=== PATIENT | female | born 1985 | race American Indian/Alaskan Native ===

== ENCOUNTER 2017-09-23 10:00 | Emergency (ER) | payer OTHER ==
[2017-09-23] MEDS ORDERED: Morphine 4 mg/ml ISec IVP STA (10:30)
[2017-09-23] MEDS ORDERED: Famotidine 20mg/50ml 20 MG/50 ML BAG IVPB STA (10:32)
--- NOTE | 2017-09-23 10:36 | ED PDOC ---
Arrival/HPI - General Chief Complaint: Abdominal Pain Time Seen by Provider: 09/23/17 10:24 Historian: Patient - History of Present Illness Narrative History of Present Illness (Text): 09/23/17 10:30 pt p/w + severe epigastric pain since this morning; pt had eaten a heavy meal last night with fried chicken and biscuits; pt states pain is middle of her upper abd, + deep breathing causes some pain; pt states at most pain is 6/10, non-radiating; pt states mild nausea, no appetite, no fever/chills/sweats, no cp /sob/palpitations, no rashes, no urinary/bowel changes, no gross bleeding; pt denied other complaints; pt is here for further eval. pt first presented to Dr Myles's office prior to ED arrival PCP: Dixie Myles pt gave ~ 3 months ago, had CTA chest/dopper performed at the time - no DVT/PE Time/Duration: Prior to Arrival Symptom Onset: Sudden Symptom Course: Unchanged Quality: Tightness, Cramping Severity Level: 7 Activities at Onset: Rest Context: Home Past Medical History - Provider Review Nursing Documentation Reviewed: Yes - Travel History Have you recently traveled outside [place] w/in the past 3 mons?: No - Past History Past History: No Previous - Infectious Disease Hx of Infectious Diseases: None - Reproductive Menopause: No Currently : No - Psychiatric Hx Psychophysiologic Disorder: No Hx Substance Use: No - Surgical History Hx Section: Yes (06/22) Other/Comment: L LEG R/T FX Family/Social History - Physician Review Nursing Documentation Reviewed: Yes Family/Social History: No Known Family HX Smoking Status: Never Smoked Hx Alcohol Use: Yes Frequency of alcohol use: Socially Hx Substance Use: No Hx Substance Use Treatment: No Allergies/Home Meds Allergies/Adverse Reactions: Allergies No Known Allergies Allergy (Verified 09/23/17 10:06) Review of Systems - Review of Systems Constitutional: Normal Eyes: Normal ENT: Normal Respiratory: Normal. absent: SOB Cardiovascular: Normal. absent: Chest Pain Gastrointestinal: Abdominal Pain, Nausea. absent: Vomiting Genitourinary Female: Normal Musculoskeletal: Normal. absent: Back Pain Skin: Normal Neurological: Normal Endocrine: Normal Hemo/Lymphatic: Normal Psychiatric: Normal Physical Exam Vital Signs Reviewed: Yes Vital Signs Temp Pulse Resp BP Pulse Ox 09/23/17 13:38 98.0 F 81 19 130/80 98 09/23/17 10:06 99.1 F 88 17 145/84 98 Temperature: Afebrile Blood Pressure: Normal Pulse: Regular Respiratory Rate: Normal Appearance: Positive for: Well-Appearing, Non-Toxic, Uncomfortable, Other (alert /awake, GCS = 15, oriented x 3, cooperative, NAD, uncomfortable) Pain Distress: None Mental Status: Positive for: Alert and Oriented X 3 - Systems Exam Head: Present: Atraumatic, Normocephalic Pupils: Present: PERRL, Other (visual field intact b/l, no nystagmus, no photophobia, sclera anicteric) Extroacular Muscles: Present: EOMI Conjunctiva: Present: Normal Ears: Present: Normal Mouth: Present: Moist Mucous Membranes, Normal Teeth Pharnyx: Present: Normal Nose (External): Present: Atraumatic Nose (Internal): Present: Normal Inspection Neck: Present: Normal Range of Motion, Trachea Midline, Other (no step off, no nuchal rigidity, no meningeal signs). No: MIDLINE TENDERNESS Respiratory/Chest: Present: Clear to Auscultation, Good Air Exchange, Other ( CTA b/l, no w/r/r) Cardiovascular: Present: Regular Rate and Rhythm, Normal S1, S2. No: Murmurs Abdomen: Present: Tenderness (+ mild prince's sign, + mild epigastric tenderness ), Normal Bowel Sounds, Other (well nourished/morbid obese female, no mcburney' s point tenderness, no masses/rebound/guarding/rigidity) Back: Present: Normal Inspection, Other (intact ROM, no midline tenderness, no step off). No: CVA Tenderness, Midline Tenderness Upper Extremity: Present: Normal Inspection, Normal ROM, NORMAL PULSES, Neurovascularly Intact, Capillary Refill < 2s Lower Extremity: Present: Normal Inspection, NORMAL PULSES, Normal ROM, Neurovascularly Intact, Capillary Refill < 2 s, Other (+ ambulatory, neurovasc intact b/l, strength 5/5 grossly intact in all limbs). No: Prudence's Sign Neurological: Present: GCS=15, CN II-XII Intact, Speech Normal Skin: Present: Warm, Normal Color, Other (cap refill < 1sec, no ulcerations, no petechiae, no rashes). No: Rashes Psychiatric: Present: Alert, Oriented x 3 Medical Decision Making ED Course and Treatment: 09/23/17 10:36 Impression: epigastric pain i have consider all the differential diagnosis regarding pt's chief medical complaints/clinical findings, including but are not limited to: epigastric pain A/P: epigastric pain - labs - iv - xray - us - ? acs - observe - supportive care 09/23/17 13:31 pt did not want morphine for pain control pt states epigastric pain ~ 5/[address] Dixie Myles, made aware of pt's medical presentation, if pt remains with persistent intractable pain, agrees with admission, otherwise pt can be discharged home with outpt f/u and tramadol for pain control pt denied nausea/vomiting pt is made aware of her medical results pt is encouraged bland diet pt is encouraged fluids pt will f/u as directed pt will be discharged home Re-evaluation Time: 13:15 Reassessment Condition: Unchanged - Lab Interpretations Lab Results: 09/23/17 10:55 09/23/17 10:55 Lab Results 09/23/17 11:15: Urine Color Light yellow, Urine Appearance Clear, Urine pH 6.5, Ur Specific [place] 1.010, Urine Protein Negative, Urine Glucose (UA) Negative, Urine Ketones Negative, Urine Blood Small H, Urine Nitrate Negative, Urine Bilirubin Negative, Urine Urobilinogen 0.2, Ur Leukocyte Esterase Negative, Urine RBC 10 - 15, Urine WBC 0 - 2, Ur Epithelial Cells 6 - 8, Amorphous Sediment Few, Urine Bacteria Many, Urine Other Uyeast 09/23/17 10:55: Sodium 140, Potassium 4.2, Chloride 105, Carbon Dioxide 26, Anion Gap 13, BUN 11, Creatinine 0.7, Est GFR ( Amer) > 60, Est GFR (Non- Af Amer) > 60, Random Glucose 99, Calcium 9.6, Magnesium 1.7, Total Bilirubin 0.3, AST 22, ALT 39, Alkaline Phosphatase 56, Lactate Dehydrogenase 498, Total Creatine Kinase 121, Troponin I < 0.01, Total Protein 7.9, Albumin 3.9, Globulin 4.0, Albumin/Globulin Ratio 1.0 L, Lipase 23 09/23/17 10:55: WBC 13.7 H, RBC 4.65, Hgb 13.1, Hct 38.6, MCV 83.0, MCH 28.2, MCHC 33.9, RDW 13.4, Plt Count 321, MPV 9.7, Gran % 78.9 H, Lymph % (Auto) 14.5 L, Haakon % (Auto) 5.8, Eos % (Auto) 0.7 L, Baso % (Auto) 0.1, Gran # 10.81 H, Lymph # (Auto) 2.0, Haakon # (Auto) 0.8 H, Eos # (Auto) 0.1, Baso # (Auto) 0.01 I have reviewed the lab results: Yes Interpretation: Abnormal lab values (slightly elevated WBCs) - RAD Interpretation Narrative RAD Interpretations (Text): 09/23/17 12:29 US abdomen- Creator : Ming Yusuf MD FINDINGS: LIVER: Measures 19.3 cm. Hepatopedal blood flow. Fatty infiltration manifest ultrasonographically as increased echogenicity of the liver parenchyma. No mass. No intrahepatic bile duct dilatation. GALLBLADDER: Cholelithiasis. Negative study for gallbladder wall thickening, pericholecystic fluid, sonographic Prince's sign. COMMON BILE DUCT: Measures 4.5 mm. No stones. No dilatation. PANCREAS: Unremarkable as visualized. No mass. No ductal dilatation. RIGHT KIDNEY: Measures 4.6 x 11.2cm. Normal echogenicity. No calculus, mass, or hydronephrosis. LEFT KIDNEY: Measures chest 0.2 x 11.6cm. Normal echogenicity. No calculus, mass , or hydronephrosis. SPLEEN: Normal in size and contour. No mass. AORTA: No aneurysmal dilatation. IVC: Unremarkable. IMPRESSION: Cholelithiasis. No sonographic evidence of acute cholecystitis. 09/23/17 12:33 Chest X-ray- Creator : Ming Yusuf MD IMPRESSION: No active disease. Radiology Orders: 09/23/17 10:30 CHEST TWO VIEWS (PA/LAT) [RAD] Stat 09/23/17 10:31 ABDOMEN COMPLETE [US] Stat Testing Shaking Shipping: ED Physician, Radiologist - EKG Interpretation EKG Interpretation (Text): 09/23/17 13:21 NSR at 85 bpm, normal axis, no ectopy, qs in leads III, F, no st-t changes, NORMAL EKG; NO old ekg to compare with Interpreted by ED Physician: Yes Type: 12 lead EKG Comparison: No previous EKG avail. - Medication Orders Current Medication Orders: Discontinued Medications Famotidine (Pepcid 20mg/50ml Premix) 20 mg in 50 mls @ 100 mls/hr IVPB STAT STA Stop: 09/23/17 11:01 Last Admin: 09/23/17 11:02 Dose: 100 mls/hr eMAR Start Stop Document 09/23/17 11:02 [email or web address] (Rec: 09/23/17 11:02 [id number]) Intravenous Solution Start Date 09/23/17 Start Time 11:02 End Date 09/23/17 Ketorolac Tromethamine (Toradol) 30 mg IVP STAT STA Stop: 09/23/17 13:16 Morphine Sulfate (Morphine) 4 mg IVP STAT STA Stop: 09/23/17 10:31 Last Admin: 09/23/17 10:56 Dose: Not Given Non-Admin Reason: Patient Refused Ondansetron HCl (Zofran Inj) 4 mg IVP STAT STA Stop: 09/23/17 10:43 Last Admin: 09/23/17 11:02 Dose: 4 mg IVP Administration Document 09/23/17 11:02 [email or web address] (Rec: 09/23/17 11:02 [id number]) Charges for Administration # of IVP Administrations 1 Disposition/Present on Arrival - Present on Arrival Any Indicators Present on Arrival: No History of DVT/PE: No History of Uncontrolled Diabetes: No Urinary Catheter: No History of Decub. Ulcer: No History Surgical Site Infection Following: None - Disposition Have Diagnosis and Disposition been Completed?: Yes Diagnosis: Biliary calculi, Epigastric pain Disposition: HOME/ ROUTINE Disposition Time: 13:32 Patient Plan: Discharge Patient Problems: Current Active Problems Problem Status Onset Biliary calculi Acute Epigastric pain Acute Condition: STABLE Discharge Instructions (ExitCare): Gallstones Print Language: MONGOLIAN Additional Instructions: Make sure to see your doctor in 1-2 days DRINK PLENTY OF FLUIDS AVOID fatty foods take your medications as prescribed RETURN TO ED IF worse pain, cant breath, persistent vomiting, high fever >101- 102 for hours, altered behavior, unable to urinate, heavy/persistent bleeding, passing out, chest pain, or other medical emergencies Prescriptions: Ibuprofen [Motrin] 400 mg PO QID PRN #30 tab PRN Reason: Pain, Mild (1-3) traMADol [Ultram] 50 mg PO BID PRN #12 tab PRN Reason: Pain, Moderate (4-7) Referrals: Ming Myles DO [Primary Care Provider] - Follow up with primary Forms: [employer]uguchu (Turkmen)
[2017-09-23 11:08] LABS: BASO # 0.01 K/mm3 (0.0-2.0); BASO % 0.1 % (0.0-3.0); EOS # 0.1 (0.0-0.7); EOS % 0.7 % (1.5-5.0); GRAN # 10.81 (1.4-6.5); GRAN % 78.9 % (50.0-68.0); HEMOGLOBIN 13.1 g/dL (12.0-16.0); LYMPH % 14.5 % (22.0-35.0); MEAN CORPUSCULAR HEMOGLOBIN 28.2 pg (25.0-35.0); MEAN CORPUSCULAR HGB CONC 33.9 g/dl (31.0-37.0); MEAN PLATELET VOLUME 9.7 fl (7.0-11.0); MONO # 0.8 (0.1-0.6); MONO % 5.8 % (1.0-6.0); RBC 4.65 10^6/uL (3.5-6.1); RED CELL DISTRIBUTION WIDTH 13.4 % (11.5-14.5); WHITE BLOOD COUNT 13.7 10^3/ul (4.5-11.0)
[2017-09-23 11:25] LABS: ALBUMIN 3.9 g/dL (3.0-4.8); ALT/SGPT 39 U/L (7-56); AST/SGOT 22 U/L (14-36); BLOOD UREA NITROGEN 11 mg/dL (7-21); CALCIUM 9.6 mg/dL (8.4-10.5); GFR AFRICAN-AMERICAN > 60; GFR NON-AFRICAN AMERICAN > 60; LIPASE 23 U/L (23-300)
[2017-09-23 11:29] LABS: PH,URINE 6.5 (4.7-8.0); URINE APPEARANCE CLEAR (CLEAR); URINE BILIRUBIN NEGATIVE (NEGATIVE); URINE BLOOD SMALL (NEGATIVE); URINE COLOR LIGHT YELLOW (YELLOW); URINE GLUCOSE (UA) NEGATIVE (NEGATIVE); URINE LEUKOCYTE ESTERASE NEGATIVE Leu/uL (NEGATIVE); URINE PROTEIN NEGATIVE mg/dL (<30 mg/dL); URINE UROBILINOGEN 0.2 E.U./dL (<1 E.U./dL)
[2017-09-23 11:32] LABS: URINE BACTERIA MANY (NEG); URINE WBC 0 - 2 /hpf (0-6)
[2017-09-23 11:33] LABS: URINE AMORPHOUS SEDIMENT FEW
[2017-09-23 11:35] LABS: TROPONIN I < 0.01 ng/mL
--- NOTE | 2017-09-23 12:26 | US ---
HISTORY: stretcher COMPARISON: None. TECHNIQUE: Sonographic evaluation of the abdomen. FINDINGS: LIVER: Measures 19.3 cm. Hepatopedal blood flow. Fatty infiltration manifest ultrasonographically as increased echogenicity of the liver parenchyma. No mass. No intrahepatic bile duct dilatation. GALLBLADDER: Cholelithiasis. Negative study for gallbladder wall thickening, pericholecystic fluid, sonographic Sanchez's sign. COMMON BILE DUCT: Measures 4.5 mm. No stones. No dilatation. PANCREAS: Unremarkable as visualized. No mass. No ductal dilatation. RIGHT KIDNEY: Measures 4.6 x 11.2cm. Normal echogenicity. No calculus, mass, or hydronephrosis. LEFT KIDNEY: Measures chest 0.2 x 11.6cm. Normal echogenicity. No calculus, mass, or hydronephrosis. SPLEEN: Normal in size and contour. No mass. AORTA: No aneurysmal dilatation. IVC: Unremarkable. OTHER FINDINGS: None. IMPRESSION: Cholelithiasis. No sonographic evidence of acute cholecystitis.
--- NOTE | 2017-09-23 12:32 | RAD ---
HISTORY: epigastric pain COMPARISON: No prior. TECHNIQUE: Chest PA and lateral FINDINGS: LUNGS: No active pulmonary disease. PLEURA: No significant pleural effusion identified. No pneumothorax apparent. CARDIOVASCULAR: Normal. OSSEOUS STRUCTURES: No significant abnormalities. VISUALIZED UPPER ABDOMEN: Normal. OTHER FINDINGS: None. IMPRESSION: No active disease.
[2017-09-23 13:39] VITALS: BP 130/80; PULSE 81; TEMP 98
[2017-09-23 13:52] VITALS: RESP 18; O2SAT 99
--- NOTE | 2017-09-23 14:00 | CARD ---
APPROVED REPORT EKG Measurement Heart [id number] <Conclusion> Normal sinus rhythm Normal ECG
== END 2017-09-23 13:52 | disposition home or self-care (01) ==
LOC: ED 10:00
DX: K80.20 Calculus of gallbladder without cholecystitis without obstruction (principal); R10.13 Epigastric pain
CPT/HCPCS: 71046; 76700; 80053; 81001; 82550; 83615; 83690; 83735; 84484; 85025; 93005; 96374; 96375; 99283; J1885; J2405

== ENCOUNTER 2018-03-01 09:54 | Emergency (ER) | payer OTHER ==
--- NOTE | 2018-03-01 10:16 | ED PDOC ---
Arrival/HPI - General Time Seen by Provider: 03/01/18 10:09 Historian: Patient - History of Present Illness Narrative History of Present Illness (Text): 03/01/18 10:13 33yo morbidly obese female with no significant pmhx who present with complaint of sharp lower back pain. Notes that pain started this morning ,while she stood up from doing squat in a gym and she heard a "popping" sound on her back. Pain is worse with movement. She did not take any medication for the pain. Denies urinary/fecal incontinence, abdominal pain, fever, chills, saddle anesthesia, nausea, vomiting, any other complaint. Past Medical History - Provider Review Nursing Documentation Reviewed: Yes - Past History Past History: No Previous - Infectious Disease Hx of Infectious Diseases: None - Psychiatric Hx Psychophysiologic Disorder: No Hx Substance Use: No - Surgical History Hx Section: Yes (06/22) Other/Comment: L LEG R/T FX Family/Social History - Physician Review Nursing Documentation Reviewed: Yes Family/Social History: Unknown Family HX Smoking Status: Never Smoked Hx Alcohol Use: Yes Hx Substance Use: No Hx Substance Use Treatment: No Allergies/Home Meds Allergies/Adverse Reactions: Allergies No Known Allergies Allergy (Verified 03/01/18 11:46) Review of Systems - Physician Review All systems were reviewed & negative as marked: Yes - Review of Systems Constitutional: Normal Eyes: Normal ENT: Normal Respiratory: Normal Cardiovascular: Normal Gastrointestinal: Normal Genitourinary Female: Normal Musculoskeletal: Back Pain Skin: Normal Neurological: Normal Endocrine: Normal Hemo/Lymphatic: Normal Psychiatric: Normal Physical Exam Vital Signs Reviewed: Yes Vital Signs Temp Pulse Resp BP Pulse Ox 03/01/18 14:00 98.1 F 72 18 134/78 98 03/01/18 12:00 72 18 129/72 100 03/01/18 10:30 97.9 F 68 18 133/77 100 03/01/18 10:25 97.9 F 68 18 133/77 100 Temperature: Afebrile Blood Pressure: Normal Pulse: Regular Respiratory Rate: Normal Appearance: Positive for: Well-Appearing, Non-Toxic, Comfortable Pain Distress: None Mental Status: Positive for: Alert and Oriented X 3 - Systems Exam Head: Present: Atraumatic, Normocephalic Pupils: Present: PERRL Extroacular Muscles: Present: EOMI Conjunctiva: Present: Normal Mouth: Present: Moist Mucous Membranes Neck: Present: Normal Range of Motion Respiratory/Chest: Present: Clear to Auscultation, Good Air Exchange. No: Respiratory Distress, Accessory Muscle Use Cardiovascular: Present: Regular Rate and Rhythm, Normal S1, S2. No: Murmurs Abdomen: No: Tenderness, Distention, Peritoneal Signs Back: Present: Midline Tenderness, Pain with Leg Raise (B/L legs). No: Paraspinal Tenderness Upper Extremity: Present: Normal Inspection. No: Cyanosis, Edema Lower Extremity: Present: Normal Inspection. No: Edema Neurological: Present: GCS=15, CN II-XII Intact, Speech Normal Skin: Present: Warm, Dry, Normal Color. No: Rashes Psychiatric: Present: Alert, Oriented x 3, Normal Insight, Normal Concentration Medical Decision Making ED Course and Treatment: 03/01/18 20:00 PT presented for stated history. She was ambulatory and neurologically intact Her pain was controlled in ED with medication LS xray Negative Result was DW the pt. She surgical history of gastric sleeve and was given Tramadol and baclofen for pain. She was also seen in ED by her PMD, Dr. Myles and is suppose to f/u with his office tomorrow. - RAD Interpretation Radiology Orders: 03/01/18 10:12 LS SPINE WITH OBL > 18 YRS OLD [RAD] Stat - Medication Orders Current Medication Orders: Discontinued Medications Cyclobenzaprine HCl (Flexeril) 10 mg PO STAT STA Stop: 03/01/18 10:14 Last Admin: 03/01/18 10:38 Dose: 10 mg Ketorolac Tromethamine (Toradol) 60 mg IM STAT STA Stop: 03/01/18 10:14 Last Admin: 03/01/18 10:38 Dose: 60 mg MAR Pain Assessment Document 03/01/18 10:38 [facility] (Rec: 03/01/18 10:38 [employer] [id number]) Pain Reassessment Is this a pain reassessment? No IM Administration Charges Document 03/01/18 10:38 [employer] (Rec: 03/01/18 10:38 [employer] ENGINE[employer] [id number]) Injection Site MAR Injection Site Right Deltoid Charges for Administration # of IM Administrations 1 Disposition/Present on Arrival - Present on Arrival Any Indicators Present on Arrival: No History of DVT/PE: No History of Uncontrolled Diabetes: No Urinary Catheter: No History of Decub. Ulcer: No History Surgical Site Infection Following: None - Disposition Have Diagnosis and Disposition been Completed?: Yes Diagnosis: Low back strain Disposition: HOME/ ROUTINE Disposition Time: 13:15 Patient Plan: Discharge Condition: STABLE Discharge Instructions (ExitCare): Muscle Strain, Low Back Pain (DC) Additional Instructions: Apply warm compress/shower to area Rest, follow up with your doctor Return to ED for any new or worsening symptoms Prescriptions: Baclofen [Lioresal] 20 mg PO BID #10 tab traMADol [Ultram] 50 mg PO TID #10 tab Referrals: Ming Myles DO [Primary Care Provider] - Follow up with primary Forms: WORK NOTE
[2018-03-01 10:19] VITALS: BMI 49.9
[2018-03-01 10:26] VITALS: RESP 18
--- NOTE | 2018-03-01 13:20 | RAD ---
Date of service: 03/01/2018 PROCEDURE: Radiographs of the Lumbar Spine. HISTORY: back pain COMPARISON: No prior. FINDINGS: BONES: Normal alignment. No listhesis. No fracture. DISC SPACES: Unremarkable. OTHER FINDINGS: None. IMPRESSION: Unremarkable radiographs of the lumbar spine.
[2018-03-01 14:05] VITALS: BP 134/78; PULSE 72; TEMP 98.1; O2SAT 98
== END 2018-03-01 14:05 | disposition home or self-care (01) ==
LOC: ED 09:54
DX: S39.012A Strain of muscle, fascia and tendon of lower back, initial encounter (principal); X58.XXXA Exposure to other specified factors, initial encounter; Y92.39 Other specified sports and athletic area as the place of occurrence of the external cause; E66.01 Morbid (severe) obesity due to excess calories
CPT/HCPCS: 72110; 96372; 99283; J1885

== ENCOUNTER 2018-06-09 16:50 | Emergency (ER) | payer OTHER ==
[2018-06-09 16:51] VITALS: BMI 49.9
[2018-06-09 17:20] VITALS: RESP 18; TEMP 98.2
--- NOTE | 2018-06-09 18:05 | ED PDOC ---
Arrival/HPI - General Chief Complaint: Abnormal Skin Integrity Historian: Patient - History of Present Illness Narrative History of Present Illness (Text): 06/09/18 18:02 33yo morbidly obese female who present to ED with the compliant of laceration to her left 2nd and 3rd fingers. States she accidentally cut her fingers with a knife while cooking. Reports numbness to her 3rd finger. She denies any other complaint. Past Medical History - Provider Review Nursing Documentation Reviewed: Yes - Past History Past History: No Previous - Infectious Disease Hx of Infectious Diseases: None - Cardiac Hx Cardiac Disorders: No - Pulmonary Hx Respiratory Disorders: No - Neurological Hx Neurological Disorder: No - HEENT Hx HEENT Disorder: No - Renal Hx Renal Disorder: No - Endocrine/Metabolic Hx Endocrine Disorders: No - Hematological/Oncological Hx Blood Disorders: No - Integumentary Hx Dermatological Disorder: No - Musculoskeletal/Rheumatological Hx Back Pain: Yes - Psychiatric Hx Psychophysiologic Disorder: No Hx Substance Use: No - Surgical History Hx Section: Yes (06/22) Hx Gastric Bypass Surgery: Yes Other/Comment: L LEG R/T FX - Anesthesia Hx Anesthesia: Yes Hx Anesthesia Reactions: No Hx Malignant Hyperthermia: No Family/Social History - Physician Review Nursing Documentation Reviewed: Yes Family/Social History: Unknown Family HX Smoking Status: Never Smoked Hx Alcohol Use: Yes Hx Substance Use: No Hx Substance Use Treatment: No Allergies/Home Meds Allergies/Adverse Reactions: Allergies No Known Allergies Allergy (Verified 03/01/18 11:46) Review of Systems - Physician Review All systems were reviewed & negative as marked: Yes - Review of Systems Constitutional: Normal Eyes: Normal ENT: Normal Respiratory: Normal Cardiovascular: Normal Gastrointestinal: Normal Genitourinary Female: Normal Musculoskeletal: Normal Skin: Laceration (Right 2nd, 3rd finger) Neurological: Normal Endocrine: Normal Hemo/Lymphatic: Normal Psychiatric: Normal Physical Exam Vital Signs Reviewed: Yes Vital Signs Temp Pulse Resp BP Pulse Ox 06/09/18 16:51 98.2 F 85 18 132/87 99 Temperature: Afebrile Blood Pressure: Normal Pulse: Regular Respiratory Rate: Normal Appearance: Positive for: Well-Appearing, Non-Toxic, Comfortable Pain Distress: None Mental Status: Positive for: Alert and Oriented X 3 - Systems Exam Head: Present: Atraumatic, Normocephalic Pupils: Present: PERRL Extroacular Muscles: Present: EOMI Conjunctiva: Present: Normal Mouth: Present: Moist Mucous Membranes Neck: Present: Normal Range of Motion Respiratory/Chest: Present: Clear to Auscultation, Good Air Exchange. No: Respiratory Distress, Accessory Muscle Use Cardiovascular: Present: Regular Rate and Rhythm, Normal S1, S2. No: Murmurs Abdomen: No: Tenderness, Distention, Peritoneal Signs Back: Present: Normal Inspection Upper Extremity: Present: Normal Inspection. No: Cyanosis, Edema Lower Extremity: Present: Normal Inspection. No: Edema Neurological: Present: GCS=15, CN II-XII Intact, Speech Normal Skin: Present: Warm, Dry, Normal Color, Laceration (1.5cm superfical laceration noted to right dsital 3rd volar finger. NVI. FROM. 0.5cm abrasion noted on the 2nd distal volar finger). No: Rashes Psychiatric: Present: Alert, Oriented x 3, Normal Insight, Normal Concentration Medical Decision Making ED Course and Treatment: 06/11/18 00:25 wound was irrigated with NS. Laceration was approximated with Dermabond and steri strip. She was NVI and had FROM. Wound dressed and finger splint applied to limit finger movement and vessel constriction. Abrasion cleaned with betadine and bacitracine applied and dressed. PT was placed on prophylactic abx Up to date with booster. Referred to her PMD. Disposition/Present on Arrival - Present on Arrival Any Indicators Present on Arrival: No History of DVT/PE: No History of Uncontrolled Diabetes: No Urinary Catheter: No History of Decub. Ulcer: No History Surgical Site Infection Following: None - Disposition Have Diagnosis and Disposition been Completed?: Yes Diagnosis: Finger laceration Disposition: HOME/ ROUTINE Disposition Time: 18:05 Patient Plan: Discharge Condition: STABLE Discharge Instructions (ExitCare): Laceration Repair With Glue (DC) Additional Instructions: Keep wound clean and dry Follow up with your doctor Return to ED for redness, purulent discharge, any other complaint. Prescriptions: Cephalexin [cephalexin] 500 mg PO TID #21 cap Referrals: Jasmyne Weiss MD [Medical Doctor] - Follow up with primary Forms: [employer] (Setswana)
[2018-06-09 19:15] VITALS: BP 130/87; PULSE 88; O2SAT 98
== END 2018-06-09 19:00 | disposition home or self-care (01) ==
LOC: ED 16:50
DX: S61.213A Laceration without foreign body of left middle finger without damage to nail, initial encounter (principal); W26.0XXA Contact with knife, initial encounter; Y93.G3 Activity, cooking and baking; Y92.89 Other specified places as the place of occurrence of the external cause

== ENCOUNTER 2018-06-29 11:11 | Emergency (ER) | payer OTHER ==
[2018-06-29 11:23] VITALS: BMI 45.4
[2018-06-29 11:25] VITALS: TEMP 98; O2SAT 100
--- NOTE | 2018-06-29 11:34 | ED PDOC ---
Arrival/HPI - General Chief Complaint: Finger,Hand,&Wrist Time Seen by Provider: 06/29/18 11:12 Historian: Patient - History of Present Illness Narrative History of Present Illness (Text): 06/29/18 11:28 33yo female with no pmhx who present with complaint of left 3rd finger pain. Reports history of laceration to the finger 20days ago. States she started having pain and intermittent swelling to her PIP joint s/p/. States she was seen at her job's clinic and was told is secondary to the splint that she should move her finger often. States she works with her hand and moves her finger constantly but still having pain. Denies new trauma, focal weakness, paresthesia, redness, any other complaint. Past Medical History - Provider Review Nursing Documentation Reviewed: Yes - Past History Past History: No Previous - Infectious Disease Hx of Infectious Diseases: None - Cardiac Hx Cardiac Disorders: No - Pulmonary Hx Respiratory Disorders: No - Neurological Hx Neurological Disorder: No - HEENT Hx HEENT Disorder: No - Renal Hx Renal Disorder: No - Endocrine/Metabolic Hx Endocrine Disorders: No - Hematological/Oncological Hx Blood Disorders: No - Integumentary Hx Dermatological Disorder: No - Musculoskeletal/Rheumatological Hx Back Pain: Yes - Psychiatric Hx Psychophysiologic Disorder: No Hx Substance Use: No - Surgical History Hx Section: Yes (06/22) Hx Gastric Bypass Surgery: Yes Other/Comment: L LEG R/T FX - Anesthesia Hx Anesthesia: Yes Hx Anesthesia Reactions: No Hx Malignant Hyperthermia: No Family/Social History - Physician Review Nursing Documentation Reviewed: Yes Family/Social History: Unknown Family HX Smoking Status: Never Smoked Hx Alcohol Use: Yes Hx Substance Use: No Hx Substance Use Treatment: No Allergies/Home Meds Allergies/Adverse Reactions: Allergies No Known Allergies Allergy (Verified 03/01/18 11:46) Review of Systems - Physician Review All systems were reviewed & negative as marked: Yes - Review of Systems Constitutional: Normal Eyes: Normal ENT: Normal Respiratory: Normal Cardiovascular: Normal Gastrointestinal: Normal Genitourinary Female: Normal Musculoskeletal: Arthralgias (LEft 3rd finger) Skin: Normal Neurological: Normal Endocrine: Normal Hemo/Lymphatic: Normal Psychiatric: Normal Physical Exam Vital Signs Reviewed: Yes Vital Signs Temp Pulse Resp BP Pulse Ox 06/29/18 11:11 98 F 85 18 119/80 100 Temperature: Afebrile Blood Pressure: Normal Pulse: Regular Respiratory Rate: Normal Appearance: Positive for: Well-Appearing, Non-Toxic, Comfortable Pain Distress: None Mental Status: Positive for: Alert and Oriented X 3 - Systems Exam Head: Present: Atraumatic, Normocephalic Pupils: Present: PERRL Extroacular Muscles: Present: EOMI Conjunctiva: Present: Normal Mouth: Present: Moist Mucous Membranes Neck: Present: Normal Range of Motion Respiratory/Chest: Present: Clear to Auscultation, Good Air Exchange. No: Respiratory Distress, Accessory Muscle Use Cardiovascular: Present: Regular Rate and Rhythm, Normal S1, S2. No: Murmurs Abdomen: No: Tenderness, Distention, Peritoneal Signs Back: Present: Normal Inspection Upper Extremity: Present: Normal Inspection, Normal ROM, NORMAL PULSES, Neurovascularly Intact, Capillary Refill < 2s. No: Cyanosis, Edema, Tenderness, Swelling, Temperature Abnormalties, Deformity Lower Extremity: Present: Normal Inspection. No: Edema Neurological: Present: GCS=15, CN II-XII Intact, Speech Normal Skin: Present: Warm, Dry, Normal Color. No: Rashes Psychiatric: Present: Alert, Oriented x 3, Normal Insight, Normal Concentration Medical Decision Making ED Course and Treatment: 06/29/18 16:23 Pt in ED for left 3rd finger pain. Left hand xray - No acute finding Result was DW the pt and she was referred to her PMd/Hand specialist - RAD Interpretation Radiology Orders: 06/29/18 11:27 HAND LEFT 3RD DIGIT (FINGER) [RAD] Stat Disposition/Present on Arrival - Present on Arrival Any Indicators Present on Arrival: No History of DVT/PE: No History of Uncontrolled Diabetes: No Urinary Catheter: No History of Decub. Ulcer: No History Surgical Site Infection Following: None - Disposition Have Diagnosis and Disposition been Completed?: Yes Diagnosis: Finger pain Disposition: HOME/ ROUTINE Disposition Time: 12:25 Patient Plan: Discharge Condition: STABLE Discharge Instructions (ExitCare): Muscle and Bone Pain (DC) Additional Instructions: Follow up with your Doctor/hand specialist Return to ED for any new symptoms Prescriptions: RX: Ibuprofen [Motrin Tab] 600 mg PO Q6 #20 tab Referrals: PCP,NO [Primary Care Provider] - Follow up with primary Jasmyne Weiss MD [Medical Doctor] - Follow up with primary Forms: [employer] (Estonian)
--- NOTE | 2018-06-29 11:57 | RAD ---
Date of service: 06/29/2018 PROCEDURE: Left middle finger radiographs. HISTORY: Finger pain COMPARISON: None. TECHNIQUE: AP radiograph of the left hand, as well as spot oblique and lateral images of left middle finger were obtained. FINDINGS: LEFT MIDDLE FINGER: Left middle finger normal, without fracture of focal lesion. Remainder of the left hand (as seen on the AP view) is grossly unremarkable. JOINTS: Normal. SOFT TISSUES: Normal. OTHER FINDINGS: None. IMPRESSION: Normal left middle finger radiographs.
[2018-06-29 12:35] VITALS: BP 121/53; PULSE 79; RESP 19
== END 2018-06-29 12:35 | disposition home or self-care (01) ==
LOC: ED 11:11
DX: M79.645 Pain in left finger(s) (principal)

== ENCOUNTER 2018-11-22 01:57 | Emergency (ER) | payer OTHER ==
[2018-11-22 01:58] VITALS: BMI 45.4
[2018-11-22 03:03] VITALS: TEMP 98; O2SAT 100
[2018-11-22] MEDS ORDERED: Iohexol 240 (50 ml) ONE (03:32)
--- NOTE | 2018-11-22 03:32 | ED PDOC ---
Arrival/HPI <Nestor Mercer - Last Filed: 11/22/18 03:57> - General Historian: Patient - History of Present Illness Narrative History of Present Illness (Text): 11/22/18 03:29 CC: abdominal pain HPI: 33 yo female w/ PMH of gastric sleeve and ankle fracture comes to ED for evaluation of abdominal pain. Patient locates the pain in the epigastric region, non-radiating, w/ no other associated symptoms. Patient states the pain started after eating spicy Cheetos chips. Denies heartburn because she has had heartburn in the past during her . Denies previous episodes. Admits to abdominal pain. Denies fevers, chills, chest pain, sob, n/v, constipation or diarrhea, and dysuria. Time/Duration: 1-3 hours Symptom Course: Intermittent, Worsening Quality: Stabbing, Cramping Severity Level: 7 Activities at Onset: Eating Context: Sitting <Cinthia Duran - Last Filed: 11/22/18 06:14> - General Chief Complaint: Abdominal Pain Time Seen by Provider: 11/22/18 03:08 Past Medical History - Provider Review Nursing Documentation Reviewed: Yes Primary Care Provider: Ming Myles - Past History Past History: No Previous - Infectious Disease Hx of Infectious Diseases: None - Cardiac Hx Cardiac Disorders: No - Pulmonary Hx Respiratory Disorders: No - Neurological Hx Neurological Disorder: No - HEENT Hx HEENT Disorder: No - Renal Hx Renal Disorder: No - Endocrine/Metabolic Hx Endocrine Disorders: No - Hematological/Oncological Hx Blood Disorders: No - Integumentary Hx Dermatological Disorder: No - Musculoskeletal/Rheumatological Hx Back Pain: Yes - Psychiatric Hx Psychophysiologic Disorder: No Hx Substance Use: No - Surgical History Hx Section: Yes (06/22) Hx Gastric Bypass Surgery: Yes (11/20-sleeve) Other/Comment: L LEG R/T FX - Anesthesia Hx Anesthesia: Yes Hx Anesthesia Reactions: No Hx Malignant Hyperthermia: No <Cinthia Duran - Last Filed: 11/22/18 06:14> Family/Social History Family/Social History: No Known Family HX Smoking Status: Never Smoked Hx Alcohol Use: Yes Hx Substance Use: No Hx Substance Use Treatment: No <Cinthia Duran - Last Filed: 11/22/18 06:14> Allergies/Home Meds <Nestor Mercer - Last Filed: 11/22/18 03:57> <Cinthia Duran - Last Filed: 11/22/18 06:14> Allergies/Adverse Reactions: Allergies No Known Allergies Allergy (Verified 03/01/18 11:46) Review of Systems - Review of Systems Constitutional: Normal. absent: Fatigue, Weight Change, Fevers Eyes: Normal ENT: Normal Respiratory: Normal Cardiovascular: Normal. absent: Chest Pain, Palpitations Gastrointestinal: Abdominal Pain. absent: Stool Changes, Constipation, Diarrhea, Nausea, Vomiting Genitourinary Female: Normal. absent: Dysuria, Frequency Musculoskeletal: Normal. absent: Arthralgias, Back Pain Skin: Normal. absent: Rash, Pruritis Endocrine: Normal. absent: Diaphoresis, Polyuria, Polydipsia Psychiatric: Normal. absent: Anxiety, Depression <Cinthia Duran - Last Filed: 11/22/18 06:14> Physical Exam Vital Signs Temp Pulse Resp BP Pulse Ox 11/22/18 02:48 98.0 F 101 H 17 146/76 100 <Nestor Mercer - Last Filed: 11/22/18 03:57> Vital Signs Reviewed: Yes Vital Signs Temp Pulse Resp BP Pulse Ox 11/22/18 02:48 98.0 F 101 H 17 146/76 100 Temperature: Afebrile Blood Pressure: Normal Pulse: Tachycardic Respiratory Rate: Normal Appearance: Positive for: Uncomfortable. No: Well-Appearing, Non-Toxic, Comfortable Pain Distress: Mild Mental Status: No: Alert and Oriented X 3 - Systems Exam Head: Present: Atraumatic, Normocephalic Pupils: Present: PERRL Extroacular Muscles: Present: EOMI Conjunctiva: Present: Normal Mouth: Present: Moist Mucous Membranes. No: Dry Neck: Present: Normal Range of Motion. No: Meningeal Signs, JVD Respiratory/Chest: Present: Clear to Auscultation, Good Air Exchange. No: Respiratory Distress, Accessory Muscle Use Cardiovascular: Present: Regular Rate and Rhythm, Normal S1, S2 Abdomen: Present: Tenderness, Normal Bowel Sounds. No: Distention, Peritoneal Signs, Rebound, Guarding Upper Extremity: Present: Normal Inspection. No: Cyanosis, Edema Lower Extremity: Present: Normal Inspection. No: Edema Neurological: Present: GCS=15, CN II-XII Intact, Speech Normal Skin: Present: Warm, Dry, Normal Color. No: Rashes Psychiatric: Present: Alert, Oriented x 3, Normal Insight, Normal Concentration <Cinthia Duran - Last Filed: 11/22/18 06:14> Medical Decision Making ED Course and Treatment: Impression: Pt seen and evaluated with medical affairs manager. Aware and agree with HPI, clinical findings, plan, and management. Pt, whose past medical history includes gastric sleeve, presented for epigastric abdominal pain. Plan: -- CT Abdomen and Pelvis with IV contrast -- Labs -- Ultram -- Reassess and disposition - RAD Interpretation Radiology Orders: 11/22/18 03:28 ABD & PELVIS IV CONTRAST ONLY [CT] Stat - Medication Orders Current Medication Orders: Discontinued Medications Tramadol HCl (Ultram) 50 mg PO STAT STA Stop: 11/22/18 03:26 <Nestor Mercer - Last Filed: 11/22/18 03:57> ED Course and Treatment: 11/22/18 03:38 Impression 33 yo female w/ PMH of gastric sleeve and ankle fracture comes to ED for evaluation of abdominal pain. Patient locates the pain in the epigastric region, non-radiating, w/ no other associated symptoms. Plan -CBC -CMP -CT abd/pelvis IV contrast -Ultram Prior Visits All prior documentation and lab work reviewed prior to evaluation Progress Notes pending imaging and lab work CT abdomen/pelvis shows no acute pathology Will d/c followup with GI for further management due to gastric sleeve history Patient re-evaluated at bedside, sleeping comfortable with no complaints 11/22/18 06:10 Re-evaluation Time: 06:12 Reassessment Condition: Re-examined, Improved - Lab Interpretations Lab Results: 11/22/18 03:47 11/22/18 03:47 Lab Results 11/22/18 03:47: Sodium 141, Potassium 3.6, Chloride 107, Carbon Dioxide 25, Anion Gap 13, BUN 10, Creatinine 0.7, Est GFR ( Amer) > 60, Est GFR (Non- Af Amer) > 60, Random Glucose 98, Calcium 9.0, Total Bilirubin 0.2, AST 77 H D, ALT 34, Alkaline Phosphatase 60, Total Protein 7.6, Albumin 3.9, Globulin 3.7, Albumin/Globulin Ratio 1.1 11/22/18 03:47: WBC 7.3, RBC 4.39, Hgb 12.5, Hct 37.9, MCV 86.3 D, MCH 28.5, MCHC 33.0, RDW 13.0, Plt Count 267, MPV 9.8, Neut % (Auto) 52.3, Lymph % (Auto) 37.1 H, Crook % (Auto) 9.0 H, Eos % (Auto) 1.5, Baso % (Auto) 0.1, Lymph # (Auto) 2.7, Crook # (Auto) 0.7 H, Eos # (Auto) 0.1, Baso # (Auto) 0.01, Absolute Neuts (auto) 3.80 - RAD Interpretation Radiology Orders: 11/22/18 03:28 ABD & PELVIS IV CONTRAST ONLY [CT] Stat - Medication Orders Current Medication Orders: Tramadol HCl (Ultram) 50 mg PO STAT STA Stop: 11/22/18 03:26 <Cinthia Duran - Last Filed: 11/22/18 06:14> - PA / EDUCATION GENERAL MANAGER / Resident Statement BENITO has reviewed & agrees with the documentation as recorded. BENITO has examined the patient and agrees with the treatment plan. <Nestor Mercer - Last Filed: 11/22/18 03:57> Disposition/Present on Arrival <Nestor Mercer - Last Filed: 11/22/18 03:57> - Present on Arrival Any Indicators Present on Arrival: No History of DVT/PE: No History of Uncontrolled Diabetes: No Urinary Catheter: No History of Decub. Ulcer: No History Surgical Site Infection Following: None - Disposition Have Diagnosis and Disposition been Completed?: Yes Disposition Time: 06:13 Patient Plan: Discharge <Cinthia Duran - Last Filed: 11/22/18 06:14> - Disposition Diagnosis: GERD without esophagitis Condition: GOOD Additional Instructions: 1. Please followup with GI within a week of discharge from hospital. Please f/u with surgical doctor who performed gastric sleeve within a week of discharge. Please follow up with primary medical doctor within a week of discharge 2. Please return to hospital if symptoms worsen or recur Forms: [employer] (Nepali)
[2018-11-22 04:04] LABS: BASO # 0.01 K/mm3 (0.0-2.0); BASO % 0.1 % (0.0-3.0); EOS # 0.1 (0.0-0.7); EOS % 1.5 % (1.5-5.0); HEMOGLOBIN 12.5 g/dL (12.0-16.0); LYMPH # 2.7 (1.2-3.4); LYMPH % 37.1 % (22.0-35.0); MEAN CELL VOLUME 86.3 fl (80.0-105.0); MEAN CORPUSCULAR HEMOGLOBIN 28.5 pg (25.0-35.0); MEAN PLATELET VOLUME 9.8 fl (7.0-11.0); MONO # 0.7 (0.1-0.6); RBC 4.39 10^6/uL (3.5-6.1); WHITE BLOOD COUNT 7.3 10^3/uL (4.5-11.0)
[2018-11-22 04:14] LABS: ALB/GLOB RATIO 1.1 (1.1-1.8); ALBUMIN 3.9 g/dL (3.0-4.8); ALT/SGPT 34 U/L (7-56); AST/SGOT 77 U/L (14-36); BLOOD UREA NITROGEN 10 mg/dL (7-21); GFR NON-AFRICAN AMERICAN > 60
[2018-11-22 06:18] VITALS: BP 120/71; PULSE 83; RESP 13
--- NOTE | 2018-11-22 10:02 | CARD ---
APPROVED REPORT Date of service: 11/22/2018 EKG Measurement Heart [id number] <Conclusion> Sinus tachycardia Possible Left atrial enlargement
--- NOTE | 2018-11-22 11:06 | CT ---
Date of service: 11/22/2018 PROCEDURE: CT Abdomen and Pelvis with contrast HISTORY: abdominal pain, r/o appendicitis COMPARISON: Abdomen ultrasound performed 09/23/17 TECHNIQUE: Contrast dose: 150 mL Omnipaque 350 IV Radiation dose: Total exam DLP = 1164.36 mGy-cm. This CT exam was performed using one or more of the following dose reduction techniques: Automated exposure control, adjustment of the mA and/or kV according to patient size, and/or use of iterative reconstruction technique. FINDINGS: LOWER THORAX: No visible consolidation, pleural effusion, or pneumothorax. Small hiatal hernia/distal esophageal wall thickening. LIVER: Unremarkable. GALLBLADDER AND BILE DUCTS: Cholecystectomy. PANCREAS: Unremarkable. SPLEEN: Sub cm probable splenules. Otherwise unremarkable. ADRENALS: Unremarkable. KIDNEYS AND URETERS: The kidneys enhance symmetrically. No hydronephrosis or obstructing calculus identified. VASCULATURE: No aortic aneurysm. No atherosclerotic calcification or mural plaque present. BOWEL: Stomach is nondistended. Postsurgical gastric changes. Lack of oral contrast limits evaluation for bowel pathology. Bowel loops appear within normal limits of caliber without evidence of obstruction. Mild wall thickening of the sigmoid colon. APPENDIX: The appendix appears within normal limits of caliber. Punctate probable appendicoliths. No secondary signs of acute appendicitis. PERITONEUM: Small pelvic free fluid. No definite free air. LYMPH NODES: No bulky adenopathy identified. BLADDER: Unremarkable. REPRODUCTIVE: IUD. 1.7 cm probable left ovarian cyst. BONES: No acute osseous abnormality is detected. OTHER FINDINGS: None. IMPRESSION: Punctate probable appendicoliths. The appendix appears within normal limits of caliber. No secondary signs of acute appendicitis. Small pelvic free fluid. Mild thickening of the sigmoid colon likely exaggerated by under distension; correlate clinically to exclude possibility of colitis. Cholecystectomy. Postsurgical gastric changes. Probable left ovarian cyst measuring approximately 1.7 cm. IUD. Additional incidental findings as above. Preliminary impression was provided by [employer]
== END 2018-11-22 06:34 | disposition home or self-care (01) ==
LOC: ED 01:57
DX: K21.9 Gastro-esophageal reflux disease without esophagitis (principal); Z98.84 Bariatric surgery status
CPT/HCPCS: 74177; 80053; 81025; 85025; 93005; 99283; Q9967